=== PATIENT | male | born 1945 | race Caucasian/White ===

== ENCOUNTER 2018-11-03 10:24 | Inpatient (IN) | payer MEDICARE, BC ==
[2018-10-31 13:30] LABS: BASOPHILS % 0.5 % (0.0-1.0); EOSINOPHILS # (AUTO) 0.3 (0.0-0.4); EOSINOPHILS % 3.4 % (0.0-6.0); HEMATOCRIT 41.5 % (38.2-49.6); LYMPHOCYTES # (AUTO) 2.1 (1.0-3.2); LYMPHOCYTES % 26.6 % (18.0-39.1); MEAN CORPUSCULAR HEMOGLOBIN 31.5 pg (28-32); MEAN CORPUSCULAR HGB CONC 33.7 g/dL (31-35); MEAN CORPUSCULAR VOLUME 93.3 fL (81-99); MONOCYTES # (AUTO) 0.5 (0.2-0.8); MONOCYTES % 6.6 % (4.4-11.3); NEUTROPHILS % 62.5 % (38.7-80.0); PLATELET COUNT 249 x10e3/uL (140-360); RED BLOOD COUNT 4.45 x10e6/uL (4.3-5.7); RED CELL DISTRIBUTION WIDTH 11.9 % (11.7-14.4)
[2018-10-31 13:37] LABS: INR 0.95; PROTHROMBIN TIME 13.2 seconds (11.9-14.5)
[2018-10-31 13:38] LABS: PARTIAL THROMBOPLASTIN TIME 30.5 seconds (23.8-35.5)
[2018-10-31 13:47] LABS: ALANINE AMINOTRANSFERASE 19 IU/L (0-55); ALBUMIN/GLOBULIN RATIO 1.4 (0.8-2.0); ALKALINE PHOSPHATASE 68 IU/L (40-150); BLOOD UREA NITROGEN 16 mg/dL (7-26); BUN/CREATININE RATIO 18 (6-25); CALCIUM 9.3 mg/dL (8.4-10.2); CARBON DIOXIDE 29 mmol/L (22-29); CHLORIDE 102 mmol/L (98-107); CREATININE, SERUM 0.89 mg/dL (0.72-1.25); EST GLOMERULAR FILTRATION RATE > 60 ML/MIN (60-); GLUCOSE 95 mg/dL (74-118); SODIUM 139 mmol/L (136-145)
--- NOTE | 2018-10-31 15:26 | Diagnostic Imaging Report ---
EXAMINATION: CHEST 2 VIEWS INDICATION: Pre-op. COMPARISON: None FINDINGS: TUBES and LINES: None. LUNGS: Lungs are well inflated. Lungs are clear. There is no evidence of pneumonia or pulmonary edema. PLEURA: No pleural effusion or pneumothorax. HEART AND MEDIASTINUM: The cardiomediastinal silhouette is unremarkable. BONES AND SOFT TISSUES: No acute osseous lesion. Soft tissues are unremarkable. UPPER ABDOMEN: No free air under the diaphragm. IMPRESSION: No acute radiographic abnormality. Signed by: Dr. Moon Rader MD on 10/31/2018 3:22 PM
[~2018-11-03] VITALS: Ht 182.9 cm; Wt 99.9 kg
[~2018-11-03 10:24] MED LIST: ALENDRONATE SOD70 MG PO; ASPIR 8181 MG PO; ATORVASTATIN CA10 MG PO; CALCIUM600 MG PO; CETIRIZINE HCL10 MG PO; CYCLOBENZAPRINE10 MG PO; FLOMAX0.4 MG PO; GABAPENTIN400 MG PO; KETOCONAZOLE120 ML TOP; KETOCONAZOLE15 GM TOP; LISINOPRIL-HCT1 EAC1 PO; MULTIVITAMINS1 EAC8 PO; OMEPRAZOLE20 M1 PO; ULTRAM 50MG50 MG PO; VITAMIN B-121000 MCG PO; VITAMIN D3 PO
--- OUTSIDE RECORDS SUMMARY | 2018-11-03 10:26 | XMS REPORT ---
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 Allergies, Adverse Reactions, Alerts This patient has no known allergies or adverse reactions. Medications This patient has no known medications. Results Test Description Test Time Test Comments Text Results Atomic Results Result Comments CHEST 2 VIEWS 2018-10-31 15:17:00 [place] [id number] Patient Name: MAN HWANG JR MR #: [id number] : 1945 Age/Sex: 73/M Req #: [id number] Adm Physician: Ordered by: RUDDY CACERES MD Report #: [id number] Location: OR Room/Bed: Procedure: [id number] DX/CHEST 2 VIEWS Exam Date: 10/31/18 Exam Time: 1319 REPORT STATUS: Signed EXAMINATION: CHEST 2 VIEWS INDICATION: Pre-op. COMPARISON: None FINDINGS: TUBES and LINES: None. LUNGS: Lungs are well inflated. Lungs are clear. There is no evidence of pneumonia or pulmonary edema. PLEURA: No pleural effusion or pneumothorax. HEART AND MEDIASTINUM: The cardiomediastinal silhouette is unremarkable. BONES AND SOFT TISSUES: No acute osseous lesion. Soft tissues are unremarkable. UPPER ABDOMEN: No free air under the diaphragm. IMPRESSION: No acute radiographic abnormality. Signed by: Dr. Randy Cifuentes MD on 10/31/2018 3:22 PM Dictated By: RANDY CIFUENTES MD 1522 Transcribed By: AJITH on 10/31/18 1522 COPY TO: RUDDY CACERES MD
--- OUTSIDE RECORDS SUMMARY | 2018-11-03 10:26 | XMS REPORT | Clinical Summary ---
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 Active MV,MINERALS/FA/LYCOPENE/G Take by 0 INKGO (MEN'S 50+ DAILY mouth. FORMULA ORAL) Active ketoconazole (NIZORAL) 2 Apply 0 % cream topically daily. Active ketoconazole (NIZORAL) 2 Apply 0 % shampoo topically 2 (two) times a week. Apply to damp skin, lather, leave on 5 minutes, and rinse Active cetirizine (ZyrTEC) 10 MG Take 10 mg by 0 tablet mouth daily. Active naproxen sodium (ALEVE) Take 220 mg 0 220 MG tablet by mouth daily. Active lisinopril-hydrochlorothi Take 1 tablet 90 tablet 3 azide by mouth 9 (PRINZIDE,ZESTORETIC) daily. 20-25 mg per tabletIndications: Essential hypertension 12/20/2018 Active omeprazole (PriLOSEC) 20 Take 1 90 capsule 3 MG capsule capsule (20 9 mg total) by mouth daily for 84 days. 10/10/2019 Active atorvastatin (LIPITOR) 10 Take 1 tablet 90 tablet 3 MG tabletIndications: (10 mg total) 9 Mixed hyperlipidemia by mouth daily. Active gabapentin (NEURONTIN) Take 400 mg 0 400 mg capsule by mouth 3 (three) times a day. Active alendronate (FOSAMAX) 70 Take 1 tablet 0 201 MG tablet by mouth 9 every 7 days. Active cyclobenzaprine Take 1 tablet 0 (FLEXERIL) 10 mg tablet by mouth 2 9 (two) times a day as needed. Active tamsulosin (FLOMAX) 0.4 Take 1 0 mg capsule capsule by 9 mouth daily. Active traMADol (ULTRAM) 50 mg Take 1 tablet 0 tablet by mouth 9 every 6 (six) hours as needed. Active calcium carbonate-vitamin Take 1 tablet 0 D3 (CALCIUM 500 + D) 500 by mouth mg(1,250mg) -400 unit daily. tablet Active cyanocobalamin (VITAMIN Take 1,000 0 B-12) 1000 MCG tablet mcg by mouth daily. Active cholecalciferol, vitamin Take 1 tablet 0 D3, (VITAMIN D3) 5,000 by mouth unit tablet daily. 04/12/2018 Discontinued gabapentin (NEURONTIN) TAKE ONE 360 capsule 2 300 MG capsule CAPSULE BY 6 MOUTH 3 TIMES A DAY 11/30/2017 Discontinued naproxen sodium (ALEVE) Take 220 mg 0 220 MG tablet by mouth 2 (two) times a day with meals. 11/30/2017 Discontinued NAPROXEN SOD/DIPHENHYDRAM Take by 0 HCL (ALEVE PM ORAL) mouth. 11/30/2017 Discontinued loratadine (CLARITIN) 10 Take 10 mg by 0 mg tablet mouth daily. 03/01/2018 Discontinued diltiazem (CardIZEM) 60 Take 1 tablet 90 tablet 3 MG tabletIndications: (60 mg total) 7 Essential hypertension by mouth once daily. 11/30/2017 Discontinued vardenafil (LEVITRA) 20 Take 1 tablet 10 tablet 3 MG tabletIndications: (20 mg total) 7 Other male erectile by mouth dysfunction daily as needed for erectile dysfunction. 12/13/2017 Discontinued lisinopril-hydrochlorothi TAKE 1 TABLET 90 tablet 0 azide BY MOUTH 8 (PRINZIDE,ZESTORETIC) EVERY DAY 20-25 mg per tabletIndications: Essential hypertension 09/27/2018 Discontinued omeprazole (PriLOSEC) 20 TAKE ONE 90 capsule 3 MG capsule CAPSULE BY 8 MOUTH EVERY DAY 06/05/2018 Discontinued cyclobenzaprine 0 (FLEXERIL) 10 mg tablet 8 04/18/2018 Discontinued atorvastatin (LIPITOR) 10 TAKE 1 TABLET 90 tablet 1 MG tabletIndications: BY MOUTH 8 Mixed hyperlipidemia EVERY DAY 04/12/2018 Discontinued cholecalciferol, vitamin Take 2,000 0 D3, (VITAMIN D3) 2,000 Units by unit capsule capsule mouth daily. 03/12/2018 Discontinued lisinopril-hydrochlorothi TAKE 1 TABLET 90 tablet 0 azide BY MOUTH 8 (PRINZIDE,ZESTORETIC) EVERY DAY 20-25 mg per tabletIndications: Essential hypertension 07/02/2018 Discontinued lisinopril-hydrochlorothi TAKE 1 TABLET 90 tablet 0 azide BY MOUTH 8 (PRINZIDE,ZESTORETIC) EVERY DAY 20-25 mg per tabletIndications: Essential hypertension 11/02/2018 Discontinued gabapentin (NEURONTIN) Take 300 mg 0 300 mg capsule by mouth 3 (three) times a day. 10/10/2018 Discontinued atorvastatin (LIPITOR) 10 TAKE 1 TABLET 90 tablet 1 MG tabletIndications: BY MOUTH 8 Mixed hyperlipidemia EVERY DAY 05/15/2018 acetaminophen-codeine Take 1-2 20 tablet 0 (TYLENOL WITH CODEINE #3) tablets by 8 300-30 mg per tablet mouth every 6 (six) hours as needed for moderate pain for up to 5 days. 06/09/2018 docusate sodium (COLACE) Take 1 60 capsule 0 100 MG capsule capsule (100 8 mg total) by mouth every 12 (twelve) hours for 30 days. 06/05/2018 Discontinued methylPREDNISolone Take 4 mg by 0 (MEDROL DOSEPAK) 4 mg mouth 2 (two) tablet times a day. follow package directions 09/26/2018 Discontinued lisinopril-hydrochlorothi TAKE 1 TABLET 90 tablet 0 azide BY MOUTH 8 (PRINZIDE,ZESTORETIC) EVERY DAY 20-25 mg per tabletIndications: Essential hypertension Active Problems No known active problems Encounters Care Team Description Date Type Specialty Jaymie Salomon MD Parkinsonian features (Primary Dx) 11/02/2018 Office Visit Internal Medicine Anabela Walker MA Mixed hyperlipidemia 10/10/2018 Refill Internal Medicine Anabela Walker MA 09/27/2018 Refill Internal Medicine Anabela Walker MA Essential hypertension 09/26/2018 Refill Internal Medicine Jaymie Salomon MD Essential hypertension 07/02/2018 Refill Internal Medicine Felix Terry MD Closed displaced fracture of greater trochanter of left femur with routine healing, subsequent encounter (Primary Dx); Acute hip pain, left; Fall with injury, subsequent encounter; Pain of right hip joint pain; Trochanteric bursitis of right hip 06/05/2018 Office Visit Orthopedic Surgery Felix Terry MD 05/12/2018 Orders Only Orthopedic Surgery Felix Terry MD Closed displaced fracture of greater trochanter of left femur, initial encounter 05/11/2018 Hospital Radiology Encounter Felix Terry MD Closed displaced fracture of greater trochanter of left femur, initial encounter (Primary Dx); Fall with injury, initial encounter; Acute hip pain, left; Acute pain of left knee; S/P total knee arthroplasty, left 05/11/2018 Office Visit Orthopedic Surgery Sina Lugo MD Left hip pain (Primary Dx) 05/10/2018 Emergency Emergency Medicine - 05/11/2018 Jaymie Salomon MD Mixed hyperlipidemia 04/18/2018 Refill Internal Medicine Jaymie Salomon MD Hx of falling (Primary Dx) 04/12/2018 Office Visit Internal Medicine Jaymie Salomon MD Essential hypertension 03/12/2018 Refill Internal Medicine Jaymie Salomon MD Hx of falling (Primary Dx) 03/01/2018 Office Visit Internal Medicine aJymie Salomon MD Essential hypertension 12/13/2017 Refill Internal Medicine Jaymie Salomon MD Frequent falls (Primary Dx) 11/30/2017 Office Visit Internal Medicine after 11/02/2017 Immunizations Name Dates Previously Given Next Due FLUZONE HIGH-DOSE PF 05/22/2018 Influenza Trivalent 06/18/2017, 06/16/2016 Pneumococcal Conjugate 09/16/2016 13-Valent Tdap 05/10/2018 Family History Medical History Relation Name Comments Cancer Mother Fabienne Paz Relation Name Status Comments Mother Fabienne Paz Social History Date Tobacco Use Types Packs/Day Years Used Never Smoker Smokeless Tobacco: Never Used Alcohol Use Drinks/Week oz/Week Comments No Sex Assigned at Date Recorded Not on file Industry Job Start Date Occupation Not on file Not on file Not on file Travel End Travel History Travel Start No recent travel history available. Last Filed Vital Signs Time Taken Vital Sign Reading 11/02/2018 11:30 AM CDT Blood Pressure 116/73 11/02/2018 11:30 AM CDT Pulse 81 11/02/2018 11:30 AM CDT Temperature 36.7 C (98.1 F) - Respiratory Rate - 11/02/2018 11:30 AM CDT Oxygen Saturation 97% - Inhaled Oxygen - Concentration 11/02/2018 11:30 AM CDT Weight 96.8 kg (213 lb 6.4 oz) 11/02/2018 11:30 AM CDT Height 182.9 cm (6') 11/02/2018 11:30 AM CDT Body Mass Index 28.94 Plan of Treatment Health Maintenance Due Date Last Done Comments COLON CANCER SCREENING 02/03/1996 SHINGLES VACCINES (#1) 02/03/1996 PNEUMOCOCCAL 2011 POLYSACCHARIDE VACCINE AGE 65 AND OVER 65+ PNEUMOCOCCAL VACCINE 11/03/2019 09/16/2016 Postponed from 09/16/2017 (2 of 2 - PPSV23) (Not Indicated) INFLUENZA VACCINE Completed 05/22/2018, 05/22/2018, 06/18/2017, Additional history exists Procedures Comments Procedure Name Priority Date/Time Associated Diagnosis XR HIP 2-3 VIEWS LEFT Routine 06/05/2018 Closed displaced fracture 11:18 AM CDT of greater trochanter of left femur with routine healing, subsequent encounter [place] ARTHROCENTESIS Routine 06/05/2018 Trochanteric bursitis of ASPIR&/INJ MAJOR JT/BURSA 11:00 AM CDT right hip W/O US CT LOWER EXTREMITY WO STAT 05/11/2018 Closed displaced fracture CONTRAST LEFT 4:53 PM CDT of greater trochanter of left femur, initial encounter XR ANKLE 3+ VW LEFT STAT 05/10/2018 10:48 PM CDT TYPE AND SCREEN Routine 05/10/2018 10:48 PM CDT XR KNEE 1 OR 2 VW LEFT STAT 05/10/2018 10:47 PM CDT XR HIP 2-3 VIEWS LEFT STAT 05/10/2018 10:47 PM CDT XR FEMUR 2 VW LEFT STAT 05/10/2018 10:47 PM CDT ESTIMATED GFR STAT 05/10/2018 9:33 PM CDT LACTIC ACID LEVEL, SEPSIS Timed 05/10/2018 - NOW AND REPEAT 2X EVERY 9:33 PM CDT 3 HOURS PARTIAL THROMBOPLASTIN STAT 05/10/2018 TIME (PTT) 9:33 PM CDT PROTHROMBIN TIME WITH INR STAT 05/10/2018 9:33 PM CDT COMPREHENSIVE METABOLIC STAT 05/10/2018 PANEL 9:33 PM CDT HC COMPLETE BLD COUNT STAT 05/10/2018 W/AUTO DIFF 9:33 PM CDT after 11/02/2017 Results * XR Hip 2-3 View Left (06/05/2018 11:18 AM CDT) Only the most recent of 2 results within the time period is included. Narrative Performed At [facility] AP pelvis and bilateral hip lateral x-ray shows the patient has a mildly displaced greater trochanter fracture in appropriate alignment with callus formation present. No arthritic changes present of both hips. Leg lengths are equal. Performing Organization Address City/State/Zipcode Phone Number [facility] [address] [place] [address] * Large Joint Arthrocentesis (06/05/2018 11:00 AM CDT) Narrative Performed At Felix Terry MD 06/05/2018 11:47 AM Large Joint Arthrocentesis Consent given by: patient Supporting Documentation Indications: pain Procedure Details Location: hip - R greater trochanteric bursa Right side: Needle size: 22 G Approach: lateral Right hip medications administered: 3 mL lidocaine 10 mg/mL (1 %); 1 mL triamcinolone acetonide 40 mg/mL Patient tolerance: patient tolerated the procedure well with no immediate complications * CT Lower Extremity Wo Contrast Left (05/11/2018 4:53 PM CDT) Narrative Performed At CT LOWER EXTREMITY WO CONTRAST LEFT [facility] CLINICAL INDICATION:S72.112A Displaced fracture of greater trochanter of left femurinitial encounter for closed fracture, Fracturehip, Left greater trochanter fractureCT scan to evaluate for progression of fracture through the intertrochanteric area TECHNIQUE:Multidetector CT of the left hip was performed without intravenous iodinated contrast with multiplanar reconstructions. CT imaging was performed with iterative reconstruction technique and/or automated exposure control to reduce radiation dose. COMPARISON:Radiographs performed on 05/10/2018. FINDINGS: There is an acute, comminuted, and mildly displaced fracture that involves the greater trochanter and anterosuperior intertrochanteric region. There is up to 1.2 cm of displacement at the fracture site without significant angulation. No other acute fracture is identified and there is no hip dislocation. There is mild osteoarthrosis of the hip. There are degenerative changes of the left sacroiliac joint and pubic symphysis. The partially visualized intra-abdominal and intrapelvic structures are without acute abnormality. There is no soft tissue fluid collection or soft tissue mass. IMPRESSION: Acute, comminuted, and mildly displaced fracture that involves the greater trochanter and anterosuperior intertrochanteric region. The fracture has not extended through the entire intertrochanteric region or to the lesser trochanter. [facility]-[id number] Procedure Note [facility], Radiology Results Incoming - 05/11/2018 5:[address] LOWER EXTREMITY WO CONTRAST LEFT CLINICAL INDICATION: S72.112A Displaced fracture of greater trochanter of left femur initial encounter for closed fracture, Fracture hip, Left greater trochanter fracture CT scan to evaluate for progression of fracture through the intertrochanteric area TECHNIQUE: Multidetector CT of the left hip was performed without intravenous iodinated contrast with multiplanar reconstructions. CT imaging was performed with iterative reconstruction technique and/or automated exposure control to reduce radiation dose. COMPARISON: Radiographs performed on 05/10/2018. FINDINGS: There is an acute, comminuted, and mildly displaced fracture that involves the greater trochanter and anterosuperior intertrochanteric region. There is up to 1.2 cm of displacement at the fracture site without significant angulation. No other acute fracture is identified and there is no hip dislocation. There is mild osteoarthrosis of the hip. There are degenerative changes of the left sacroiliac joint and pubic symphysis. The partially visualized intra-abdominal and intrapelvic structures are without acute abnormality. There is no soft tissue fluid collection or soft tissue mass. IMPRESSION: Acute, comminuted, and mildly displaced fracture that involves the greater trochanter and anterosuperior intertrochanteric region. The fracture has not extended through the entire intertrochanteric region or to the lesser trochanter. [facility]-[id number] Performing Organization Address [facility] Phone Number [facility] [address] [place] [address] * XR Ankle 3+ Vw Left (05/10/2018 10:48 PM CDT) Narrative Performed At EXAM:XR ANKLE 3VW LEFT [facility] CLINICAL HISTORY:ankle abrasion COMPARISON:None. IMPRESSION: No evidence of acute displaced left ankle fracture or dislocation. Ankle mortise is intact. Small Achilles enthesophyte and plantar calcaneal spur. No soft tissue emphysema is seen. Vascular calcifications are noted. Soft tissues are otherwise normal. [facility]-[id number] Procedure Note Hm Interface, Radiology Results Incoming - 05/10/2018 10:55 PM CDT EXAM: XR ANKLE 3 VW LEFT CLINICAL HISTORY: ankle abrasion COMPARISON: None. IMPRESSION: No evidence of acute displaced left ankle fracture or dislocation. Ankle mortise is intact. Small Achilles enthesophyte and plantar calcaneal spur. No soft tissue emphysema is seen. Vascular calcifications are noted. Soft tissues are otherwise normal. [facility]-[id number] Performing Organization Address [facility] Phone Number [facility] [address] [place] [address] * Type and screen (05/10/2018 10:48 PM CDT) ABO grouping O [facility] AND GENOMIC MEDICINE Rh type NEG [facility] AND GENOMIC MEDICINE Antibody screen (gel) NEG [facility]Y AND GENOMIC MEDICINE Specimen Blood Performing Organization Address City/[facility]/Zipcode Phone Number [facility] [place] [address] [address] PATHOLOGY AND GENOMIC MEDICINE * XR Knee 1 Or 2 Vw Left (05/10/2018 10:47 PM CDT) Narrative Performed At EXAM:XR KNEE 1 OR 2 VW LEFT [facility] CLINICAL HISTORY:hx of total knees p fall COMPARISON:Femur radiograph performed concurrently IMPRESSION: Evidence for a left knee arthroplasty which is radiographically intact. No evidence for periimplant fracture or lucency on the current examination to suggest loosening or infectious process. No evidence of acute displaced left knee fracture or dislocation. No significant joint effusion. Quadriceps enthesophyte is noted. Vascular calcifications are noted. Soft tissues are otherwise normal. [facility]-[id number] Procedure Note Interface, Radiology Results Incoming - 05/10/2018 10:54 PM CDT EXAM: XR KNEE 1 OR 2 VW LEFT CLINICAL HISTORY: hx of total knee s p fall COMPARISON: Femur radiograph performed concurrently IMPRESSION: Evidence for a left knee arthroplasty which is radiographically intact. No evidence for periimplant fracture or lucency on the current examination to suggest loosening or infectious process. No evidence of acute displaced left knee fracture or dislocation. No significant joint effusion. Quadriceps enthesophyte is noted. Vascular calcifications are noted. Soft tissues are otherwise normal. [facility]-[id number] Performing Organization Address [facility] Phone Number [employer] [address] [place] [address] * XR Femur 2 Vw Left (05/10/2018 10:47 PM CDT) Narrative Performed At EXAM:XR FEMUR 2 VW LEFT [facility] CLINICAL HISTORY:Fracturefemur COMPARISON:Pelvic radiograph performed concurrently IMPRESSION: Mild degenerative changes of the left hip. No evidence of acute displaced left femur fracture or dislocation. Left knee arthroplasty is partially visualized. Vascular calcifications are noted. Soft tissues are otherwise normal. [facility]-[id number] Procedure Note Interface, Radiology Results Incoming - 05/10/2018 10:53 PM CDT EXAM: XR FEMUR 2 VW LEFT CLINICAL HISTORY: Fracture femur COMPARISON: Pelvic radiograph performed concurrently IMPRESSION: Mild degenerative changes of the left hip. No evidence of acute displaced left femur fracture or dislocation. Left knee arthroplasty is partially visualized. Vascular calcifications are noted. Soft tissues are otherwise normal. [facility]-[id number] Performing Organization Address [facility]/[employer] Phone Number [employer] [address] [place] [address] * Estimated GFR (05/10/2018 9:33 PM CDT) Estimated GFR 67 mL/min/1.73 m2 [facility] OF Comment: PATHOLOGY AND [employer] GENOMIC MEDICINE rpretation G1 >=90 Normal or high G2 60-89Mildly decreased [id number] Mildly to moderately decreased [id number] Moderately to severely decreased G4 15-29Severely decreased G5 <15Kidney failure The eGFR was calculated using the Chronic Kidney Disease Epidemiology Collaboration (CKD-EPI) equation. Interpretation is based on recommendations of the National Kidney Foundation-Kidney Disease Outcomes Quality Initiative (NKF-KDOQI) published in 2014. Specimen Plasma specimen Performing Organization Address [facility] [place] [address] PATHOLOGY AND [facility] * Lactic acid level, SEPSIS - Now and repeat 2x every 3 hours (05/10/2018 9:33 PM CDT) Lactic acid 1.4 0.5 - 2.2 mmol/L [facility] PATHOLOGY [facility] Specimen Blood Performing Organization Address [facility] Phone Number [address] [employer] * Partial thromboplastin time, activated (05/10/2018 9:33 PM CDT) PTT 28.6 23.0 - 36.0 sec [facility] Comment: PATHOLOGY AND PTT therapeutic range for GENOMIC MEDICINE unfractionated heparin is 61.0-112.0 seconds which corresponds to Anti-Xa 0.3-0.7 U/ml. Note:Change in Panic Value The PTT Panic Value is changing from 110 sec. to 100 sec. due to new instrumentation and reagents. Correlation studies have been performed to validate this result. Specimen Blood Performing Organization Address [facility] Phone Number [address] [facility] * Prothrombin time with INR (05/10/2018 9:33 PM CDT) Prothrombin time 14.6 12.0 - 15.0 sec [facility] PATHOLOGY AND [facility] INR 1.12 0.92 - 1.12 [facility] OF Comment: PATHOLOGY AND For patients on anticoagulant GENOMIC MEDICINE therapy, reference ranges below: Indication: INR Value Treatment of Venous Thrombosis, 2.0-3.0 pulmonary emboli, or prophylaxis of a venous thrombosis, or systemic emboli. High dose, high risk patients 3.0-4.5 with mechanical valves. NOTE:INR values over 3.0 are sometimes associated with gastrointestinal hemorrhage, especially values over 4.0. Specimen Blood Performing Organization Address City/[facility]/Zipcode Phone Number [facility] [address] [place] [address] PATHOLOGY AND GENOMIC MEDICINE * CBC with platelet and differential (05/10/2018 9:33 PM CDT) WBC 16.6 (H) 4.2 - 11.0 k/uL [facility] PATHOLOGY AND GENOMIC MEDICINE RBC 4.41 4.04 - 5.86 m/uL [facility] PATHOLOGY AND GENOMIC MEDICINE HGB 13.5 13.0 - 17.3 g/dL [facility] OF PATHOLOGY AND GENOMIC MEDICINE HCT 40.2 34.0 - 45.0 % [facility] OF PATHOLOGY AND GENOMIC MEDICINE MCV 91.2 80.0 - 98.0 fL [facility] OF PATHOLOGY AND GENOMIC MEDICINE MCH 30.6 27.0 - 34.0 pg [facility] OF PATHOLOGY AND GENOMIC MEDICINE MCHC 33.6 31.5 - 36.5 g/dL [facility] OF PATHOLOGY AND GENOMIC MEDICINE RDW - SD 40.8 37.0 - 51.0 fL [facility] OF PATHOLOGY AND GENOMIC MEDICINE MPV 10.3 7.4 - 10.4 fL [facility] PATHOLOGY AND GENOMIC MEDICINE Platelet count 246 150 - 400 k/uL [facility] OF PATHOLOGY AND GENOMIC MEDICINE Nucleated RBC 0.00 /100 WBC [facility] OF PATHOLOGY AND GENOMIC MEDICINE Neutrophils 82.2 (H) 36.0 - 66.0 % [facility] OF PATHOLOGY AND GENOMIC MEDICINE Lymphocytes 10.5 (L) 24.0 - 44.0 % [facility] OF PATHOLOGY AND GENOMIC MEDICINE Monocytes 6.0 0.0 - 6.0 % [facility] OF PATHOLOGY AND GENOMIC MEDICINE Eosinophils 0.4 0.0 - 6.0 % [facility] OF PATHOLOGY AND GENOMIC MEDICINE Basophils 0.2 0.0 - 1.2 % [facility] OF PATHOLOGY AND GENOMIC MEDICINE Immature granulocytes 0.4 0.0 - 1.0 % [facility] OF PATHOLOGY AND GENOMIC MEDICINE Specimen Blood Performing Organization Address City/State/Zipcode Phone Number [facility] [address] [place] [address] PATHOLOGY AND GENOMIC MEDICINE * Comprehensive metabolic panel (05/10/2018 9:33 PM CDT) Sodium 142 135 - 150 mEq/L [facility] PATHOLOGY AND GENOMIC MEDICINE Potassium 4.2 3.5 - 5.0 mEq/L [facility] PATHOLOGY AND GENOMIC MEDICINE Chloride 101 98 - 112 mEq/L [facility] PATHOLOGY AND GENOMIC MEDICINE CO2 29 24 - 31 mmol/L [facility] OF PATHOLOGY AND GENOMIC MEDICINE Anion gap 12@ANIO 7 - 15 mEq/L [facility] OF PATHOLOGY AND GENOMIC MEDICINE BUN 22 (H) 7 - 18 mg/dL [facility] PATHOLOGY AND GENOMIC MEDICINE Creatinine 1.10 0.70 - 1.20 mg/dL [facility] PATHOLOGY AND GENOMIC MEDICINE Glucose 109 (H) 65 - 100 mg/dL [facility] OF PATHOLOGY AND GENOMIC MEDICINE Calcium 9.3 8.8 - 10.2 mg/dL [facility] DEPARTMENT OF PATHOLOGY AND GENOMIC MEDICINE Protein 6.7 6.3 - 8.3 g/dL [facility] DEPARTMENT OF PATHOLOGY AND GENOMIC MEDICINE Albumin 4.1 3.5 - 5.0 g/dL [facility] DEPARTMENT OF PATHOLOGY AND GENOMIC MEDICINE A/G ratio 1.6 0.7 - 3.8 [facility] DEPARTMENT OF PATHOLOGY AND GENOMIC MEDICINE Alkaline phosphatase 85 0 - 129 U/L [facility] DEPARTMENT OF PATHOLOGY AND GENOMIC MEDICINE AST 31 10 - 50 U/L [facility] DEPARTMENT OF PATHOLOGY AND GENOMIC MEDICINE ALT 21 5 - 50 U/L [facility] DEPARTMENT OF PATHOLOGY AND GENOMIC MEDICINE Total bilirubin 1.3 (H) 0.2 - 1.2 mg/dL [facility] DEPARTMENT OF PATHOLOGY AND GENOMIC MEDICINE Specimen Plasma specimen Performing Organization Address City/State/Zipcode Phone Number [facility] DEPARTMENT [facility] [place] [address] PATHOLOGY AND GENOMIC MEDICINE after 11/02/2017 Insurance Payer Benefit Subscriber ID Type Phone Address Plan / Group MEDICARE MEDICARE xxxxxxxxxxx Medicare [place], [place] PART A AND B BCBS BCBS xxxxxxxxxxxx PPO CHOICE PPO/BELA RACHEL PPO Advance Directives Patient has advance care planning documents on file. For more information, dian gomez contact: Kwame Elizalde [address] [place] [address]
[2018-11-03] MEDS ORDERED: BELLADONNA/OPIUM 30 MG SUPP RC ONE (10:43)
[2018-11-03] MEDS ORDERED: CIPROFLOXACIN 400 MG/D5W 200ML 200 ML IV ONE (10:45)
[2018-11-03] MEDS ORDERED: HYDROCODONE/APAP 7.5MG-325MG 1 EA TAB PO PRN (13:45)
[2018-11-03] MEDS ORDERED: MORPHINE SULFATE INJ 4 MG/ML INJ 1ML IV PRN (13:45)
--- NOTE | 2018-11-03 14:00 | NUR ---
recd pt from recovery via ciro,trinh3,agarwal to bsd with continous irrigation,clear urine.iv in fusing to rt fa 18 g,denies pain,
--- OUTSIDE RECORDS SUMMARY | 2018-11-03 14:19 | XMS REPORT | Clinical Summary ---
Author Author [employer] Organization [employer] Address Unknown Phone Unavailable Care Team Providers Care Outsewer Name Role Phone Jaymie Salomon MD PCP [...] (Primary Dx) 03/01/2018 Office Visit Internal Medicine Jaymie Salomon MD Essential hypertension 12/13/2017 Refill Internal [...] left femur with routine healing, subsequent encounter [place] ARTHROCENTESIS Routine 06/05/2018 Trochanteric bursitis of ASPIR&/INJ [...] time period is included. Narrative Performed At [facility] AP pelvis and bilateral hip lateral x-ray shows the patient has a mildly displaced greater trochanter fracture in appropriate alignment with callus formation present. No arthritic changes present of both hips. Leg lengths are equal. Performing Organization Address City/State/Zipcode Phone Number [facility] [address] [place] [address] * Large Joint Arthrocentesis (06/05/2018 11:00 AM [...] intertrochanteric region or to the lesser trochanter. [id number] Procedure Note [facility], Radiology Results Incoming - 05/11/2018 5:19 PM [...] intertrochanteric region or to the lesser trochanter. [facility]-[id number] Performing Organization Address [facility] Phone Number [facility] [address] [place] [address] * XR Ankle 3+ Vw Left (05/10/2018 10:48 PM CDT) Narrative Performed At EXAM:XR ANKLE 3VW LEFT [facility] CLINICAL HISTORY:ankle abrasion COMPARISON:None. IMPRESSION: No evidence of acute displaced left ankle fracture or dislocation. Ankle mortise is intact. Small Achilles enthesophyte and plantar calcaneal spur. No soft tissue emphysema is seen. Vascular calcifications are noted. Soft tissues are otherwise normal. [facility]-[id number] Procedure Note Hm Interface, Radiology Results Incoming - 05/10/2018 10:55 PM CDT EXAM: XR ANKLE 3 VW LEFT CLINICAL HISTORY: ankle abrasion COMPARISON: None. IMPRESSION: No evidence of acute displaced left ankle fracture or dislocation. Ankle mortise is intact. Small Achilles enthesophyte and plantar calcaneal spur. No soft tissue emphysema is seen. Vascular calcifications are noted. Soft tissues are otherwise normal. [facility]-[id number] Performing Organization Address [facility] Phone Number [facility] [address] [place] [address] * Type and screen (05/10/2018 10:48 PM CDT) ABO grouping O [facility] DEPARTMENT OF PATHOLOGY AND GENOMIC MEDICINE Rh type NEG [facility] DEPARTMENT OF PATHOLOGY AND GENOMIC MEDICINE Antibody screen (gel) NEG [facility] DEPARTMENT OF PATHOLOGY AND GENOMIC MEDICINE Specimen Blood Performing Organization Address City/[facility]/Zipcode Phone Number [facility] DEPARTMENT OF [facility] [place] [address] [address] PATHOLOGY AND GENOMIC MEDICINE * XR Knee [...] are noted. Soft tissues are otherwise normal. [facility]-[id number] Procedure Note Interface, Radiology Results Incoming - [...] are noted. Soft tissues are otherwise normal. [facility]-[id number] Performing Organization Address [facility] Phone Number [facility] [address] [place] [address] * XR Femur 2 Vw Left (05/10/2018 10:47 PM CDT) Narrative Performed At EXAM:XR FEMUR 2 VW LEFT [facility] CLINICAL HISTORY:Fracturefemur COMPARISON:Pelvic radiograph performed concurrently IMPRESSION: Mild degenerative changes of the left hip. No evidence of acute displaced left femur fracture or dislocation. Left knee arthroplasty is partially visualized. Vascular calcifications are noted. Soft tissues are otherwise normal. [facility]-[id number] Procedure Note Interface, Radiology Results Incoming - 05/10/2018 10:53 PM CDT EXAM: XR FEMUR 2 VW LEFT CLINICAL HISTORY: Fracture femur COMPARISON: Pelvic radiograph performed concurrently IMPRESSION: Mild degenerative changes of the left hip. No evidence of acute displaced left femur fracture or dislocation. Left knee arthroplasty is partially visualized. Vascular calcifications are noted. Soft tissues are otherwise normal. [facility]-[id number] Performing Organization Address [facility]/[employer] Phone Number [facility] [address] [place] [address] * Estimated GFR (05/10/2018 9:33 PM CDT) Estimated GFR 67 mL/min/1.73 m2 [facility] DEPARTMENT OF Comment: PATHOLOGY AND [employer] GENOMIC MEDICINE rpretation G1 >=90 Normal or high G2 60-89Mildly decreased [id number] Mildly to moderately decreased [id number] Moderately to severely decreased G4 15-29Severely decreased G5 <15Kidney failure The eGFR was calculated using the Chronic Kidney Disease Epidemiology Collaboration (CKD-EPI) equation. Interpretation is based on recommendations of the National Kidney Foundation-Kidney Disease Outcomes Quality Initiative (NKF-KDOQI) published in 2014. Specimen Plasma specimen Performing Organization Address [facility] [place] [address] PATHOLOGY AND [employer] [facility] * Lactic acid level, SEPSIS - Now and repeat 2x every 3 hours (05/10/2018 9:33 PM CDT) Lactic acid 1.4 0.5 - 2.2 mmol/L [facility] PATHOLOGY [facility] Specimen Blood Performing Organization Address [facility] Phone Number [address] AND [employer] [facility] * Partial thromboplastin time, activated (05/10/2018 9:33 PM CDT) PTT 28.6 23.0 - 36.0 sec [facility] DEPARTMENT OF Comment: PATHOLOGY AND PTT therapeutic range for GENOMIC MEDICINE unfractionated heparin is 61.0-112.0 seconds which corresponds to Anti-Xa 0.3-0.7 U/ml. Note:Change in Panic Value The PTT Panic Value is changing from 110 sec. to 100 sec. due to new instrumentation and reagents. Correlation studies have been performed to validate this result. Specimen Blood Performing Organization Address [facility] Phone Number [address] AND [employer] [facility] * Prothrombin time with INR (05/10/2018 9:33 PM CDT) Prothrombin time 14.6 12.0 - 15.0 sec [facility] DEPARTMENT PATHOLOGY AND [employer] [facility] INR 1.12 0.92 - 1.12 [facility] DEPARTMENT OF Comment: PATHOLOGY AND For patients on anticoagulant GENOMIC MEDICINE therapy, reference ranges below: Indication: INR Value Treatment of Venous Thrombosis, 2.0-3.0 pulmonary emboli, or prophylaxis of a venous thrombosis, or systemic emboli. High dose, high risk patients 3.0-4.5 with mechanical valves. NOTE:INR values over 3.0 are sometimes associated with gastrointestinal hemorrhage, especially values over 4.0. Specimen Blood Performing Organization Address City/[facility]/Zipcode Phone Number [facility] [address] [place] [address] PATHOLOGY AND GENOMIC MEDICINE * CBC with platelet and differential (05/10/2018 9:33 PM CDT) WBC 16.6 (H) 4.2 - 11.0 k/uL [facility] DEPARTMENT OF PATHOLOGY AND GENOMIC MEDICINE RBC 4.41 4.04 - 5.86 m/uL [facility] DEPARTMENT OF PATHOLOGY AND GENOMIC MEDICINE HGB 13.5 13.0 - 17.3 g/dL [facility] DEPARTMENT OF PATHOLOGY AND GENOMIC MEDICINE HCT 40.2 34.0 - 45.0 % [facility] DEPARTMENT OF PATHOLOGY AND GENOMIC MEDICINE MCV 91.2 80.0 - 98.0 fL [facility] DEPARTMENT OF PATHOLOGY AND GENOMIC MEDICINE MCH 30.6 27.0 - 34.0 pg [facility] DEPARTMENT OF PATHOLOGY AND GENOMIC MEDICINE MCHC 33.6 31.5 - 36.5 g/dL [facility] DEPARTMENT OF PATHOLOGY AND GENOMIC MEDICINE RDW - SD 40.8 37.0 - 51.0 fL [facility] DEPARTMENT OF PATHOLOGY AND GENOMIC MEDICINE MPV 10.3 7.4 - 10.4 fL [facility] DEPARTMENT OF PATHOLOGY AND GENOMIC MEDICINE Platelet count 246 150 - 400 k/uL [facility] DEPARTMENT OF PATHOLOGY AND GENOMIC MEDICINE Nucleated RBC 0.00 /100 WBC [facility] DEPARTMENT OF PATHOLOGY AND GENOMIC MEDICINE Neutrophils 82.2 (H) 36.0 - 66.0 % [facility] DEPARTMENT OF PATHOLOGY AND GENOMIC MEDICINE Lymphocytes 10.5 (L) 24.0 - 44.0 % [facility] DEPARTMENT OF PATHOLOGY AND GENOMIC MEDICINE Monocytes 6.0 0.0 - 6.0 % [facility] DEPARTMENT OF PATHOLOGY AND GENOMIC MEDICINE Eosinophils 0.4 0.0 - 6.0 % [facility] DEPARTMENT OF PATHOLOGY AND GENOMIC MEDICINE Basophils 0.2 0.0 - 1.2 % [facility] DEPARTMENT OF PATHOLOGY AND GENOMIC MEDICINE Immature granulocytes 0.4 0.0 - 1.0 % [facility] DEPARTMENT OF PATHOLOGY AND GENOMIC MEDICINE Specimen Blood Performing Organization Address City/State/Zipcode Phone Number [facility] [address] [place] [address] PATHOLOGY AND GENOMIC MEDICINE * Comprehensive metabolic panel (05/10/2018 9:33 PM CDT) Sodium 142 135 - 150 mEq/L [facility] DEPARTMENT OF PATHOLOGY AND GENOMIC MEDICINE Potassium 4.2 3.5 - 5.0 mEq/L [facility] DEPARTMENT OF PATHOLOGY AND GENOMIC MEDICINE Chloride 101 98 - 112 mEq/L [facility] DEPARTMENT OF PATHOLOGY AND GENOMIC MEDICINE CO2 29 24 - 31 mmol/L [facility] DEPARTMENT OF PATHOLOGY AND GENOMIC MEDICINE Anion gap 12@ANIO 7 - 15 mEq/L [facility] DEPARTMENT OF PATHOLOGY AND GENOMIC MEDICINE BUN 22 (H) 7 - 18 mg/dL [facility] DEPARTMENT OF PATHOLOGY AND GENOMIC MEDICINE Creatinine 1.10 0.70 - 1.20 mg/dL [facility] DEPARTMENT OF PATHOLOGY AND GENOMIC MEDICINE Glucose 109 (H) 65 - 100 mg/dL [facility] DEPARTMENT OF PATHOLOGY AND GENOMIC MEDICINE Calcium 9.3 8.8 - 10.2 mg/dL [facility] DEPARTMENT OF PATHOLOGY AND GENOMIC MEDICINE Protein 6.7 6.3 - 8.3 g/dL [facility] DEPARTMENT OF PATHOLOGY AND GENOMIC MEDICINE Albumin 4.1 3.5 - 5.0 g/dL [facility] DEPARTMENT OF PATHOLOGY AND GENOMIC MEDICINE A/G ratio 1.6 0.7 - 3.8 [facility] DEPARTMENT OF PATHOLOGY AND GENOMIC MEDICINE Alkaline phosphatase 85 0 - 129 U/L [facility] DEPARTMENT OF PATHOLOGY AND GENOMIC MEDICINE AST 31 10 - 50 U/L [facility] DEPARTMENT OF PATHOLOGY AND GENOMIC MEDICINE ALT 21 5 - 50 U/L [facility] DEPARTMENT OF PATHOLOGY AND GENOMIC MEDICINE Total bilirubin 1.3 (H) 0.2 - 1.2 mg/dL [facility] DEPARTMENT OF PATHOLOGY AND GENOMIC MEDICINE Specimen Plasma specimen Performing Organization Address City/State/Zipcode Phone Number [facility] DEPARTMENT [facility] [place] [address] PATHOLOGY AND GENOMIC MEDICINE after 11/02/2017 Insurance Payer Benefit Subscriber ID Type Phone Address Plan / Group MEDICARE MEDICARE xxxxxxxxxxx Medicare [place], [place] PART A AND B BCBS BCBS xxxxxxxxxxxx PPO CHOICE PPO/BELA RACHEL PPO Advance Directives Patient has advance care planning documents on file. For more information, dina gomez contact: Kwame Elizalde [address] [place] [address]
[2018-11-03] MEDS ORDERED: FENTANYL CITRATE/PF 100MCG/2 ML INJ ONE (15:12)
[2018-11-03] MEDS ORDERED: DEXAMETHASONE SOD PHOS INJ 4 MG/ML VIAL ONE (15:12)
[2018-11-03] MEDS ORDERED: LIDOCAINE HCL 2% LOCAL INJ 5 ML SDV VIAL INJ ONE (15:12)
[2018-11-03] MEDS ORDERED: SEVOFLURANE INHAL SOLN 250 ML PEN BTL ONE (15:12)
[2018-11-03] MEDS ORDERED: ONDANSETRON HCL INJ 2MG/ML 2ML 2 MG/ML VIAL ONE (15:12)
[2018-11-03] MEDS ORDERED: MIDAZOLAM HCL 2 MG/2 ML VIAL ONE (15:12)
[2018-11-03] MEDS ORDERED: ACETAMINOPHEN 1000 MG/100 ML IV ONE (15:12)
[2018-11-03] MEDS ORDERED: PROPOFOL IV EMULSION 10 MG/ML 20 ML VIAL ONE (15:12)
[2018-11-03 16:30] VITALS: BP 132/67
[2018-11-03] MEDS: GABAPENTIN 400 MG CAP PO SCH ×2 (17:00→21:00)
[2018-11-03] MEDS: DOCUSATE SODIUM 100 MG CAP PO SCH (17:00)
[2018-11-03 18:02] VITALS: BP 132/67
--- NOTE | 2018-11-03 18:05 | NUR ---
PT UP IN BED ,DENIES PAIN,MCINTOSH TO IRRIGATION,CLEAR YELLOW URINE.
[2018-11-03 19:00] VITALS: BP 132/67
--- NOTE | 2018-11-03 19:00 | NUR ---
patient received awake, alert, lying quietly in bed. no c/o pain noted. ivf/bladder irrigation continues without difficulty. initial microsoft solutions architect complete. patient instructed to call for assistance when needed.
--- NOTE | 2018-11-03 19:00 | NUR ---
small abrasion noted to the right elbow due to fall at home.
[2018-11-03 20:00] VITALS: BP 140/70
[2018-11-03] MEDS: ATORVASTATIN 10 MG TAB PO SCH (21:15)
[2018-11-03] MEDS: SODIUM CHLORIDE 0.9% 1000ML 1,000 ML IV SCH ×2 (21:15→23:43)
--- NOTE | 2018-11-03 21:37 | Operative Report ---
DATE OF PROCEDURE: SURGEON: Jose Leavitt MD PREOPERATIVE DIAGNOSIS: Benign prostatic hypertrophy with obstruction and decreased force of stream. POSTOPERATIVE DIAGNOSES: Benign prostatic hypertrophy with obstruction and decreased force of stream. OPERATION PERFORMED: GreenLight photovaporization of the prostate. ANESTHESIA: General. INDICATIONS: This patient is a 73-year-old white male, who has had lower urinary tract symptoms with urgency, frequency, nocturia, and decreased force of stream for several years. He has been on Flomax for this problem and the Flomax is no longer working. For further details, please refer to the history and physical. The procedure was done in the following fashion. DESCRIPTION OF PROCEDURE: The patient was taken to the operating room and placed under general anesthesia and dressed and draped with Hibiclens in lithotomy position in the usual fashion. The Olympus 22-Guyanese laser cystoscope was inserted with a 30-degree oblique lens and visual obturator and video camera attachment. Bloody urethral stricture was encountered. The sphincter and verumontanum were intact. The prostate was estimated at about 40 g. Clear efflux was seen from both ureteral orifices, but the ureteral orifices were very close to the bladder neck. There was moderate middle lobe hypertrophy and there was significant tuberculation of the bladder with numerous cellules. GreenLight photovaporization of the prostate was performed with XPS MoXy Fiber. I initially started at 80 for vaporization and 80 for coagulation working out at the bladder neck area and middle lobe. Once this was accomplished, I then moved my way back first on to the left lateral lobe and then after right lateral lobe going up to 120 and then up to 160. I worked first mostly on the left side and then on the right side and then went down to 120 joules and again working around the area of the verumontanum. At the end of the procedure, the verumontanum was intact. Both ureteral orifices were intact, and the prostatic urethra was wide open. The laser cystoscope was withdrawn. I initially attempted to insert a 24-Guyanese coude catheter, but it did not want to go in easily, therefore, I reinserted the cystoscope and passed an Amplatz Super Stiff guidewire under direct vision. I then passed the coude catheter over the Amplatz Super Stiff guidewire. The balloon was insufflated to 30 mL and the guidewire was removed. Blood loss was estimated around 20 mL for the whole procedure and there was virtually no blood coming out through the efflux on the 3-way catheter, so it was not placed on traction. The patient tolerated the procedure well and left the operating room in good condition. The total number of joules used was 294,[address] Hi will be consulted for medical management. It should also be noted that initially prior to the procedure, I had asked for the patient to be on Mefoxin preoperatively, but Mefoxin was on backorder, therefore, the patient was given Cipro preoperatively and will be maintained on Cipro postoperatively. Jose Leavitt MD SRA/MODL /[id number]
[2018-11-04] VITALS (8 sets, daily range): BP systolic 100–150; BP diastolic 53–84
--- NOTE | 2018-11-04 07:30 | NUR ---
PT UP IN BED NO DISTRESS NOTED,DENIES PAINFOLEY TO BSD CLEAR URINE ,CONTINOUS FLUSH
[2018-11-04] MEDS: PANTOPRAZOLE SOD 40 MG TABEC PO SCH (08:30)
[2018-11-04] MEDS: DOCUSATE SODIUM 100 MG CAP PO SCH ×2 (08:30→17:00)
[2018-11-04] MEDS: GABAPENTIN 400 MG CAP PO SCH ×3 (08:30→20:31)
[2018-11-04] MEDS: CYANOCOBALAMIN 1,000 MCG TAB PO SCH (08:30)
[2018-11-04] MEDS: ASPIRIN 81 MG CHEW TAB PO SCH (09:00)
--- NOTE | 2018-11-04 13:00 | NUR ---
DR FULLER HERE ORDERS WRITTEN,PT DENIES PAIN,MCINTOSH IRRIGATION INFUSING
[2018-11-04] MEDS ORDERED: ACETAMINOPHEN 325 MG TAB PO PRN (16:00)
--- NOTE | 2018-11-04 16:10 | Progress Note ---
DATE: 11/04/2018 The patient is now one day status post GreenLight laser photovaporization of the prostate. The continuous bladder irrigation is running out basically to keep open rate and the catheter efflux is clear. The patient denies pain. His abdomen is soft. Penis has Waterman catheter, appearing normal. The testicles have no evidence of epididymitis. The sequential compression devices are on, there is no evidence of deep vein thrombophlebitis. He is breathing without difficulty. My plan at this time is to advance the patient to a 2000-calorie ADA diet and tomorrow morning, the catheter will be removed for a trial of voiding. Jose Leavitt MD JODY/MODL /[id number]
[2018-11-04] MEDS ORDERED: SODIUM CHLORIDE 0.9% 250ML 250 ML ONE (16:28)
--- NOTE | 2018-11-04 16:44 | Diagnostic Imaging Report ---
EXAMINATION: CHEST SINGLE (PORTABLE) INDICATION: ^R/O PNEUMONIA ^Y COMPARISON: 10/31/2018 FINDINGS: AP view TUBES and LINES: None. LUNGS: Lungs are well inflated. Central peribronchovascular thickening/cuffing. No definite focal consolidation. PLEURA: No pleural effusion or pneumothorax. HEART AND MEDIASTINUM: The cardiomediastinal silhouette is unremarkable. BONES AND SOFT TISSUES: No acute osseous lesion. Soft tissues are unremarkable. UPPER ABDOMEN: No free air under the diaphragm. IMPRESSION: Central peribronchovascular thickening/cuffing. No definite focal consolidation. Signed by: Dr. Bear Cheng MD on 11/04/2018 4:41 PM
--- NOTE | 2018-11-04 17:00 | NUR ---
SPOKE WITH DR NOGUERA RE;TEMP. ORDERS WRITTEN PT TEMP 101.2 TYLENOL GIVEN,BLOOD CULTURE DONE,ANTIBIOTICS STARTED
[2018-11-04] MEDS: MEROPENEM 500MG/ NS 50ML 50 ML IV SCH ×2 (17:24→23:53)
--- NOTE | 2018-11-04 19:00 | NUR ---
patient received awake, alert, lying quietly in bed. no c/o pain noted. bladder irrigation continues. urine remains clear at this time. pm assessment complete. patient instructed to call for assistance when needed.
[2018-11-04] MEDS: ATORVASTATIN 10 MG TAB PO SCH (20:31)
--- NOTE | 2018-11-04 20:31 | History and Physical ---
CHIEF COMPLAINT: Status post GreenLight photovaporization of the prostate. I have been consulted for medical management and assistance. HISTORY OF PRESENT ILLNESS: This is a 73-year-old male, who has a known history of BPH and other comorbidities, who came in for an elective GreenLight photovaporization of the prostate that was performed yesterday on 11/03/[address] Leavitt, Urology. The patient has a history of lower urinary tract symptoms with urgency, frequency, nocturia, decreased force of stream for several years now and he has been taking medications with no resolve. The patient now is seen postprocedurally and he is currently doing well with the CBI. His urine has cleared up now and is very clear in texture. The patient was evaluated, currently doing well with no other issues. His vital signs were stable when I evaluated him. He did not have any complaints when I evaluated him with . REVIEW OF SYSTEMS: Pertinent positives: He has a history of BPH with low streams. Pertinent negatives: Denies any chest pain, palpitation, nausea, vomiting, diarrhea, dysuria, hematuria, frequency, urgency, lightheadedness, dizziness, abdominal pain, headaches, shortness of breath, cough, congestion, fever, or any other complaints. Rest of 14-point review of systems are reviewed with the patient and are negative. ALLERGIES: NO KNOWN DRUG ALLERGIES. HOME MEDICATIONS: He takes cyclobenzaprine 10 mg p.r.n. for muscle spasms, alendronate, ketoconazole shampoo, tamsulosin, and tramadol for pain. He takes calcium carbonate, sertraline, hydrochlorothiazide with lisinopril combo. PAST MEDICAL HISTORY: Hypertension, history of BPH, hyperlipidemia, neuropathy. PAST SURGICAL HISTORY: Recent GreenLight photovaporization performed on 11/03/2018. FAMILY HISTORY: Hypertension and diabetes. SOCIAL HISTORY: No drugs, no alcohol. Does not smoke. Good social support. PHYSICAL EXAMINATION: VITAL SIGNS: Temperature 98.8, pulse 91, respiratory rate is 18, blood pressure 118/64, pulse ox 95% on room air. GENERAL: Not in acute distress. Alert and oriented x3. Cooperative on examination. HEENT: Head is normocephalic and atraumatic. Eyes, pupils equal, round, and reactive to light bilaterally. Extraocular movements are intact bilaterally. Throat, no evidence of erythema or exudate in posterior pharynx. Has poor dentition. NECK: Supple. Good range of motion. PULMONARY: Clear to auscultation bilaterally. No wheezing, rales, or rhonchi. No crackles appreciated. CARDIOVASCULAR: Positive S1 and S2. No murmurs, rubs, or gallops appreciated. ABDOMEN: Soft, nondistended, and nontender to palpation. Bowel sounds are present. MUSCULOSKELETAL: Strength is 5/5 throughout. No evidence of any muscle deficits on examination. No weakness appreciated. NEUROLOGICAL: Cranial nerves II through XII are grossly intact. No evidence of any neurological deficits on exam. SKIN: Intact. Warm to touch. Good cap refill. PSYCHIATRIC: Normal affect and mood. EXTREMITIES: No edema. Good range of motion throughout. LAB FINDINGS: Show white count 8, hemoglobin 14, hematocrit is 42, platelets of 249. Coagulation; PT 13, INR 0.95, PTT 31. Chemistry; sodium 139, potassium 4, chloride 102, bicarb 29, anion gap is 12, BUN is 16, creatinine 0.89, glucose is 95, calcium 9.3, total bilirubin was 1.5, AST 24, ALT 19, alkaline phosphatase 68, total protein 6.9, albumin is 4. MICROBIOLOGY: None. IMAGING STUDIES: Chest x-ray found to be negative. IMPRESSION: 1. History of benign prostatic hyperplasia, status post GreenLight photovaporization of the prostate performed on 11/03/2018 by Urology. 2. History of hypertension. 3. Hyperlipidemia. 4. History of coronary artery disease. PLAN: At this time, continue with continuous bladder irrigation as per Urology. It is clearing up, but according to the nurse it will be pulled out tomorrow. Continue with pain control. Resume same home medications. Hold anticoagulation due to recent procedure. As blood pressure is stable, we can continue to monitor at this time and hold lisinopril/hydrochlorothiazide. His labs, no evidence of white count. Temperatures are stable and vital signs are stable as well. Once again, we will continue the same plan of care and monitor. Follow with Urology and the Internal Medicine senior professional services consultant on this case that I am assisting with medical management. MD RYAN Rogers/MODL /[id number]
[2018-11-05] VITALS: BP 124/68
[2018-11-05 04:40] VITALS: BP 123/62
[2018-11-05 05:22] LABS: BASOPHILS % 0.3 % (0.0-1.0); EOSINOPHILS # (AUTO) 0.1 (0.0-0.4); EOSINOPHILS % 0.8 % (0.0-6.0); HEMATOCRIT 35.5 % (38.2-49.6); HEMOGLOBIN 12.1 g/dL (14.0-18.0); LYMPHOCYTES % 17.7 % (18.0-39.1); MEAN CORPUSCULAR HEMOGLOBIN 31.3 pg (28-32); MEAN CORPUSCULAR HGB CONC 34.1 g/dL (31-35); MONOCYTES % 8.6 % (4.4-11.3); NEUTROPHILS # (AUTO) 8.1 (2.1-6.9); NEUTROPHILS % 72.2 % (38.7-80.0); PLATELET COUNT 184 x10e3/uL (140-360); RED BLOOD COUNT 3.86 x10e6/uL (4.3-5.7); RED CELL DISTRIBUTION WIDTH 11.9 % (11.7-14.4)
[2018-11-05 05:36] LABS: ANION GAP 9.8 mmol/L (8-16); BLOOD UREA NITROGEN 10 mg/dL (7-26); BUN/CREATININE RATIO 13 (6-25); CALCIUM 7.5 mg/dL (8.4-10.2); CARBON DIOXIDE 25 mmol/L (22-29); CHLORIDE 105 mmol/L (98-107); CREATININE, SERUM 0.79 mg/dL (0.72-1.25); EST GLOMERULAR FILTRATION RATE > 60 ML/MIN (60-); GLUCOSE 103 mg/dL (74-118); POTASSIUM 3.8 mmol/L (3.5-5.1); SODIUM 136 mmol/L (136-145)
[2018-11-05] MEDS: MEROPENEM 500MG/ NS 50ML 50 ML IV SCH (05:40)
[2018-11-05 07:30] VITALS: BP 129/72
--- NOTE | 2018-11-05 07:30 | NUR ---
PT UP IN BED NO DISTRESS NTOED,DENIES PAIN,MCINTOSH CATH DCD as ORDERED DTV BY 1500
[2018-11-05 08:00] VITALS: BP 129/72
[2018-11-05] MEDS: DOCUSATE SODIUM 100 MG CAP PO SCH (08:53)
[2018-11-05] MEDS: CYANOCOBALAMIN 1,000 MCG TAB PO SCH (08:53)
[2018-11-05] MEDS: GABAPENTIN 400 MG CAP PO SCH (08:53)
[2018-11-05] MEDS: PANTOPRAZOLE SOD 40 MG TABEC PO SCH (08:53)
[2018-11-05] MEDS: ASPIRIN 81 MG CHEW TAB PO SCH (08:53)
--- NOTE | 2018-11-05 11:00 | NUR ---
DR FULLER HERE DISCHARGED PT HOME.PT VOIDED 200 CC LIGHT PINK URINE
[2018-11-05] MEDS ORDERED: CIPRO500 MG PO (11:59)
[2018-11-05 12:00] VITALS: BP 114/60
[2018-11-05] MEDS ORDERED: CIPROFLOXACIN500 MG PO (12:03)
--- NOTE | 2018-11-05 12:50 | NUR ---
PT DISCHARGED HOME ,IV DCD WITHOUT REDNES OR SWELLING,PRESCRIPTIONS AND INSTRUCTIONS GIVEN COPY IN CHART ,TRANSPORTED TO AUTO VIA W/C
--- NOTE | 2018-11-05 13:50 | Progress Note ---
DATE: 11/05/2018 The patient urinated in front of me into a urinal. He voided with a good stream and the urine was benjie colored, there were no blood clots. He denies pain at this time; however, the patient does walk with a walker and he has difficulty getting to the bathroom on time, he had already urinated on himself once today because he could not get to a urinal or the bathroom on time. The patient currently denies pain. The patient states he feels well enough to go home. My plan at this time is to discharge the patient on Cipro 500 mg one p.o. twice daily, #20. He will have return appointment to see me again in two weeks. Jose Leavitt MD SRA/MODL /[id number]
--- NOTE | 2018-11-06 12:05 | Discharge Summary ---
FINAL DISCHARGE DIAGNOSES: 1. Benign prostatic hypertrophy with obstruction and decreased force of stream. 2. Hypertension. 3. Gastroesophageal reflux. 4. Hypercholesterolemia. 5. History of cerebrovascular disease. 6. Type 2 diabetes mellitus. OPERATION PERFORMED: GreenLight photovaporization of the prostate. CONSULTING PHYSICIAN: Luiz Hi MD HISTORY OF PRESENT ILLNESS: This patient is a 73-year-old white male with a long history of decreased forced of stream, urgency, frequency and nocturia. He had been tried on Flomax and failed. He had a cystoscopy and uroflow, which revealed a poor urinary stream. For further details, please refer to the history and physical. HOSPITAL COURSE: The patient was admitted on November 03, 2018, and had a GreenLight photovaporization of the prostate. The patient tolerated the procedure well and left the operating room, he had minimal blood loss. He left the operating room on continuos bladder irrigation. On the second postoperative day, the Waterman catheter was removed for trial of voiding. The patient urinated with a good urinary stream. The urine was benjie colored. However, the patient had urinated on himself one time earlier during the day before urinating in front of me. The patient uses a walker to ambulate and has difficulty getting to the bathroom on time. He will go home with a urinal. He is being sent home on Cipro 500 mg one p.o. twice daily, #20. He will have return appointment to see me again in two weeks. Jose Leavitt MD SRA/MODL /[id number]
== END 2018-11-05 12:50 | disposition home or self-care (01) | DRG 713 ==
LOC: OR 10:24 → PACU V 14:11 → MED/SURG3 14:33
PROVIDERS: ADMIT Urology; ATTEND Urology
PROC: 0V508ZZ Destruction of Prostate, Via Natural or Artificial Opening Endoscopic (ICD-10-PCS; principal; 2018-11-03 12:30)
DX: N40.1 Benign prostatic hyperplasia with lower urinary tract symptoms (principal); N13.8 Other obstructive and reflux uropathy; R35.0 Frequency of micturition; R35.1 Nocturia; R39.16 Straining to void; R39.15 Urgency of urination; R39.12 Poor urinary stream; E78.5 Hyperlipidemia, unspecified; I25.10 Atherosclerotic heart disease of native coronary artery without angina pectoris; F17.210 Nicotine dependence, cigarettes, uncomplicated
CPT/HCPCS: 36415; 52648; 71045; 71046; 80048; 80053; 85025; 85610; 85730; 87040; 93005; J1100; J2001; J2250; J2405; J7030; J7050